=== PATIENT | female | born 1995 | race African-American/Black ===

== ENCOUNTER 2021-10-05 02:33 | Emergency (ER) | payer MEDICAID, OTHER ==
[~2021-10-05] VITALS: Ht 177.8 cm; Wt 84.4 kg
[2021-10-05] MEDS ORDERED: SUMAtriptan SUCCINATE 25 MG TAB PO ONE (08:00)
[2021-10-05 08:09] VITALS: BP 129/73
== END 2021-10-05 11:27 | disposition home or self-care (01) ==
LOC: ER 02:33
DX: R51.9 Headache, unspecified (principal)
CPT/HCPCS: 70450; 70545

== ENCOUNTER 2022-04-01 14:35 | Emergency (ER) | payer MEDICAID ==
[~2022-04-01] VITALS: Ht 177.8 cm; Wt 84.9 kg
[2022-04-01 14:48] VITALS: BP 123/78
[2022-04-01 15:37] LABS: Eosinophils # (auto) 0 10 ^3/uL (0-0.8); Lymphocytes # (auto) 2.4 10 ^3/uL (0.4-5.4)
[2022-04-01 15:38] LABS: Basophils # (auto) 0 10 ^3/uL (0-0.2); Basophils % (auto) 0.5 % (0.0-2.0); Eosinophils % (auto) 0.6 % (0.0-7.0); Hematocrit 42.1 % (36.0-46.0); Hemoglobin 13.4 g/dL (12.2-16.2); Lymphocytes % (auto) 31.4 % (10.0-50.0); Mean Corpuscular Hemoglobin 27.2 pg (28.0-32.0); Mean Corpuscular Hgb Conc. 31.7 g/dL (32.0-36.0); Mean Corpuscular Volume 85.8 fL (80.0-100.0); Monocytes # (auto) 0.8 10 ^3/uL (0-1.3); Monocytes % (auto) 10.1 % (0.0-12.0); Neutrophils # (auto) 4.4 10 ^3/uL (1.6-8.6); Neutrophils % (auto) 57.4 % (37.0-80.0); Nucleated Red Blood Cells % 0.2 %; Red Blood Cells 4.91 10^6/uL (4.0-5.20); Red Cell Distribution Width 13.5 % (11.8-14.3); White Blood Cell 7.6 10^3/uL (4.4-10.8)
[2022-04-01 16:04] LABS: Albumin 3.6 g/dL (3.4-5.0); Calcium 8.7 mg/dL (8.5-10.1)
[2022-04-01 16:06] LABS: BUN/Creatinine Ratio 10.3
[2022-04-01 16:09] LABS: Bilirubin, Total 0.4 mg/dL (0.2-1.0); Total Protein 7.8 g/dL (6.4-8.2)
== END 2022-04-01 21:27 | disposition left against medical advice (07) ==
LOC: ER 14:35
DX: R07.89 Other chest pain (principal); Z53.21 Procedure and treatment not carried out due to patient leaving prior to being seen by health care provider
CPT/HCPCS: 36415; 80053; 84484; 85025; 93005